=== PATIENT | female | born 1995 | race Caucasian/White ===

== ENCOUNTER → 2017-05-26 | Outpatient (CLI) | payer OTHER | LOC: FIMAGING 14:29 | PROVIDERS: ATTEND Nurse Practitioner | DX: N63.10 Unspecified lump in the right breast, unspecified quadrant (principal) ==

== ENCOUNTER → 2018-08-04 | Outpatient (CLI) | payer OTHER | LOC: FIMAGING 14:30 | PROVIDERS: ATTEND Advanced Practice Midwife | DX: N94.10 Unspecified dyspareunia (principal); Z97.5 Presence of (intrauterine) contraceptive device ==

== ENCOUNTER 2019-01-19 20:29 | Emergency (ER) | payer OTHER | END 2019-01-19 22:54 | disposition home or self-care (01) ==